=== PATIENT | male | born 1950 | race Caucasian/White ===

== ENCOUNTER 2024-09-08 15:47 | Outpatient (AMB) | payer MEDICARE, MEDICAID, SELFPAY ==
--- NOTE | 2024-09-08 15:48 | MHC.OFFWIV ---
Intake Vital Signs 09/08/24 15:50 Weight 192 lb BP 130/68 Blood Pressure Location Rt brachial Position Sitting Pulse 76 Pulse Source Pulse Oximeter Pulse Oximetry (%) 98 Oxygen Delivery Method Room Air Intake Visit Reasons: LEGAL JOB TITLES-rt ear qtips stuck Intake Note: Patient here for qtip stuck in right ear. Patient Tobacco Use Status: Never used Tobacco Allergies lisinopril Adverse Reaction (Mild, Verified 09/08/24 15:51) cough HPI HPI Comments History of Present Illness Details History of Present Illness - The patient is a 74-year-old male presenting with an impacted foreign body in the right ear canal. - Three days ago, during an ear cleaning attempt, a cotton swab tip was lodged deeply in the canal. - Initial manual removal attempts worsened the blockage, leading to ongoing ear soreness. - Self-flushing with water and baby oil proved ineffective in dislodging the swab. - Use of hydrogen peroxide to clear the blockage did not achieve results. - The patient reports ear itchiness and fullness without accompanying systemic symptoms. Physical Exam General: Cooperative, healthy appearing, comfortable, no acute distress and well developed Orientation: Patient oriented x3 Limitations: No limitations Head: Normal to inspection Ears: Right ear with foreign object (Q-tip) lodged in ear canal. Hearing grossly normal bilaterally Nose: Normal External nose present Face and sinus: Normal facial exam Eyes: Appearance normal, both eyes and all related structures Neck: Normal visual inspection and Yes full ROM Respiratory: Normal respiratory effort and able to speak in complete sentences. Skin: No rashes or lesions noted Neuro: Patient oriented x3 Extremities: Normal to inspection [facility] Social History Patient Tobacco Use Status: Never used Tobacco Review of Systems Const All systems reviewed & are unremarkable except as noted in HPI and below Physical Exam Vital Signs: Last Vital Signs Pulse 76 09/08/24 15:50 BP 130/68 09/08/24 15:50 Pulse Ox 98 09/08/24 15:50 Oxygen Delivery Method Room Air 09/08/24 15:50 Office Procedures AMB Foreign Body Removal Details: Able to remove with curved samanta clamp after initially trying with tweezers and irrigation. Foreign Body Removal, External Auditory Canal: 27943 - Foreign body removal, external auditory canal Procedure code (CPT) selection complete Assessment & Plan Assessment & Plan (1) Acute foreign body of right ear canal: Code(s): T16.1XXA - Foreign body in right ear, initial encounter Qualifiers: Encounter type: initial encounter Qualified Code(s): T16.1XXA - Foreign body in right ear, initial encounter Plan: The focused plan included further irrigation attempts to safely extract the swab tip from the right ear canal, considering previous ineffective self-attempts and the oil residual from prior interventions. Care was taken to avoid injury to the tympanic membrane, with instructions provided to monitor for complications or excessive pain. Able to remove qtip successfully. EAC has some edema and erythema, will treat for OE as could be infection seeding from FB with baby oil and other things placed in ear canal by pt. Patient was informed and verbally consented to the use of an ambient scribe for clinic note documentation during this visit. (2) Otitis externa of right ear: Code(s): H60.91 - Unspecified otitis externa, right ear Qualifiers: Otitis externa type: other infective Chronicity: acute Qualified Code(s): H60.391 - Other infective otitis externa, right ear Plan: as above Medications: New xdombhmi-oywbmnwxm-QX 3.5-10,000-1 mg/mL-unit/mL-% 4 drps otic (ear) right Q8H 7 days 10 mL 0RF Coding Level of Care Code New Pt Level 4 (74461) Diagnoses Acute foreign body of right ear canal, initial encounter T16.1XXA Encounter type: initial encounter Other infective acute otitis externa of right ear H60.391 Otitis externa type: other infective Chronicity: acute CPT Codes Details - Foreign body removal, external auditory canal: 66678 - Foreign body removal, external auditory canal ([id number])
[2024-09-08 15:50] VITALS: BP 130/68; PULSE 76; O2SAT 98
--- OUTSIDE RECORDS SUMMARY | 2024-09-08 17:34 | XMS_ITS | Clinical Summary ---
Author Organization [address] [facility] Address [address] [place] [address] Phone Care Team Providers Care Laborer Car Barn Name Role Phone Rodney Renteria MD Primary Care Provider Allergies Active Allergy Reactions Criticality Noted Date Comments Bee Venom Protein (Honey Bee) 2006 Cat Dander 12/23/2015 Dog Dander 12/23/2015 Lisinopril 10/16/2009 Cough Medications acetaminophen (TYLENOL 8 HOUR) 650 mg 8 hr tablet Take 1 tablet (650 mg total) by mouth 2 (two) times a day. 01/20/2024 Active cyclobenzaprine (FLEXERIL) 5 mg tablet Take 1 tablet (5 mg total) by mouth 3 (three) times a day if needed for muscle spasms. 11/18/2023 Active cholecalciferol (VITAMIN D-3) 25 mcg (1,000 unit) tablet Take 1 tablet (1,000 Units total) by mouth 1 (one) time each day. 07/28/2023 Active hydrocortisone (ANUSOL-HC) 2.5 % rectal cream Insert into the rectum 2 (two) times a day. 30 g 1 05/19/2024 Active nitroglycerin (NITROSTAT) 0.[address] 1 tablet (0.4 mg total) under the tongue every 5 (five) minutes if needed for chest pain. 30 tablet 1 05/19/2024 Active atorvastatin (LIPITOR) 40 mg tablet Take 1 tablet (40 mg total) by mouth at bedtime. Active hydroCHLOROthia zide (HYDRODIURIL) 25 mg tablet Take 1 tablet (25 mg total) by mouth 1 (one) time each day. 90 tablet 1 07/20/2024 Active metoprolol succinate (TOPROL-XL) 50 mg 24 hr tablet Take 1 tablet (50 mg total) by mouth 1 (one) time each day. Do not crush or chew. 90 each 1 07/20/2024 Active valsartan (DIOVAN) 80 mg tablet Take 1 tablet (80 mg total) by mouth 1 (one) time each day. 90 tablet 07/20/2024 Active clopidogreL (PLAVIX) 75 mg tablet Take 1 tablet (75 mg total) by mouth 1 (one) time each day. 90 tablet 1 07/20/2024 Active EPINEPHrine (EPIPEN) 0.3 mg/0.3 mL injection Inject 0.3 mL (0.3 mg total) into the thigh if needed for anaphylaxis. Call 911 after use. 1 each 1 07/20/2024 Active meclizine (ANTIVERT) 12.5 mg tablet Take 1 tablet (12.5 mg total) by mouth 3 (three) times a day if needed for dizziness. 30 tablet 1 07/20/2024 Active Active Problems Problem Noted Date Diagnosed Date Gastroesophageal reflux disease without esophagi tis 06/17/2023 Osteoarthritis of right hip 06/17/2023 Stenosis of right carotid artery 06/17/2023 Spondylosis of cervical frankie on without myelopathy or radiculopathy 03/26/2023 Overview (04/15/2024): Last Assessment & Plan: Mr. Cabrera has had great relief with physical therapy. He is doing home exercises and credits that and the traction with his improvement. At this point, he just has a little bit of numbness in the fifth digit of each hand. He would like a prescription for a home traction unit. We will reach out to [facility] and get that taken care of. He will follow-up with us in the future on an as-needed basis. Cerebrovascular accident (CVA) 03/20/2022 Overweight 03/20/2022 Prediabetes 03/20/2022 Chest pain 08/03/2021 Compliance Testing Analyst's nodule 01/04/2021 Stenosis of left carotid artery 10/01/2018 Overview (04/15/2024): Status post endarterectomy ? 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 angina pectoris 05/01/2011 Overview (04/15/2024): Bare-metal stent to right coronary artery, 01/29/2011 Arthritis 02/26/2010 Hyperlipidemia 02/26/2010 Primary hypertension 02/01/2009 Umbilical hernia 09/16/2008 Occlusion and stenosis of unspecified carotid ar palmer 02/21/2006 Resolved Problems Problem Noted Date Diagnosed Date Resolved Date Old cerebrovascular accident (CVA) without late effect 04/15/2024 04/15/2024 Encounters Date Type Department Care Team Description 09/08/2024 Telephone Adult Medicine [address] [phone] Rodney Renteria MD Ear Injury 07/20/2024 11:00 AM EST Office Visit Adult Medicine [address] [phone] Rodney Renteria MD Primary hypertension (Primary Dx); Prediabetes; Vertigo from Last 3 Months Immunizations Name Administration Dates Next Due H1N1 Inj Preservative Free 05/25/2009 Influenza Quadravalent, MDCK , 0.5ml, preservative free (Flucelvax) 6mo and older 03/16/2020 Influenza trivalent, 0.5mL ( Fluad) 65yo and older 03/18/2022,03/12/2021,03/31/2019,02/23,01/06/2017 Influenza trivalent, 0.5mL, preservative free (Fluarix; FluLaval; Fluzone) ages 6mo and older (Afluria) 3 years and older 03/24/2016,02/23/2015,03/22/2014,04/22,04/29/2012,05/01/2011,02/26/2010 ,02/15/2009,03/10/2008,03/26/2007,05/02 Moderna SARS-CoV-2 COVID-19, mRNA, LNP-S, preservative free 11/15/2021 Pfizer (ages 12 & older) Biv alent, COVID-19 03/18/2022 Pfizer SARS-CoV-2 COVID-19, mRNA, LNP-S, preservative free 02/28/2021 Pneumococcal conjugate 13 va lent (Prevnar 13, PCV13) 2mo and older 05/12/2018 Pneumococcal polysaccharide 23 valent (Pneumovax 23) 2yo and older 03/31/2019,03/10/2008,05/23/2007 Td Tetanus diptheria (Tdvax) 7yo and older 06/17/2023 Tdap Tetanus diptheria acell ular pertussis (Boostrix; Adacel) 7yo and older 12/01/2012 Surgical History Surgery Date Site/Laterality Comments CAROTID ENDARTERECTOMY PROCEDURE: HISTORICAL CAROTID ENDART HERNIA REPAIR PROCEDURE: REPAIR INGUINAL HERNIA HERNIA REPAIR PROCEDURE: REPAIR UMBILICAL HERNIA COLONOSCOPY 08/28/2006 PROCEDURE: HISTORICAL COLONOSCOPY; COMMENT: Small sigmoid colon polyp-tubular adenoma COLONOSCOPY 11/12/2011 PROCEDURE: HISTORICAL COLONOSCOPY; COMMENT: 5 mm sigmoid colon polyp: Tubular adenoma. COLONOSCOPY 03/13/2017 PROCEDURE: HISTORICAL COLONOSCOPY; COMMENT: 5 mm sigmoid colon polyp: tubular adenoma. OTHER SURGICAL HISTORY PROCEDURE: HISTORICAL MELANOMA; COMMENT: Malignant melanoma 07/22 right infraorbital rim (in situ) Medical History Medical History Date Comments Family history of malignant neoplasm of gastrointestinal tract 07/31/2006 DX:Family history of maligna nt neoplasm of gastrointestinal tract; COMMENT: father with diagnosis of colon cancer at age 60. Patient had a negative colonoscopy approximately age 46. Family history of colonic polyps 07/31/2006 DX:Family history of colonic polyps; COMMENT: brother with diagnosis of colonic polyps approximately age 48. Diverticulosis of colon (wit hout mention of hemorrhage) 08/28/2006 DX:Diverticulosis of colon ( without mention of hemorrhage); COMMENT: Incidental finding at colonoscopy 08/28/2006. Unspecified essential hypertension DX:Unspecified essential hypertension History of colon polyps 11/14/2011 DX:Histo ry of colon polyps History of malignant melanoma of skin 07/09/2019 DX:History of malignant melanoma of skin; COMMENT: Malignant melanoma 07/22 right infraorbital rim (in situ) Gastroesophageal reflux dise ase without esophagitis 06/17/2023 DX:Gastroesophageal reflux d isease without esophagitis Family History Medical History Relation Name Comments Other: ALS Brother Heart attack Father Ca colon Other: ALS Mother Relation Name Status Comments Brother Father Mother Social History Tobacco Use Types Packs/Day Years Used Date Smoking Tobacco: Former Smokeless Tobacco: Never Tobacco Cessation:Counseling Given: Not Answered Alcohol Use Standard Drinks/Week Comments No 0 (1 standard drink = 0.6 oz pur e alcohol) Sex and Gender Information Value Date Recorded Sex Assigned at Not on file Legal Sex Male 3:23 PM EST Gender Identity Not on file Sexual Orientation Not on file Obstetrics History Last Filed Vital Signs Vital Sign Reading Time Taken Comments Blood Pressure 138/62 07/20/2024 10:59 AM EST Pulse 60 07/20/2024 10:59 AM EST Temperature 35.8 ??C (96.4 ??F) 07/20/2024 10:[address] Respiratory Rate 16 07/20/2024 10:59 AM EST Oxygen Saturation 97% 05/19/2024 1:39 PM EST Inhaled Oxygen Concentration - - Weight 84.4 kg (186 lb) 07/20/2024 10:59 AM EST Height 174 cm (5' 8.5 ) 05/19/2024 1:39 PM EST Body Mass Index 27.87 05/19/2024 1:39 PM EST Plan of Treatment Health Maintenance Due Date Last Done Comments Zoster Vaccines (1 of 2) 1969 Falls Risk Assessment 05/11/2022 Medicare Annual Wellness Visit 05/11/2022 Social Influencers of Health Screening 05/11/2022 Depression Screening 06/17/2024 06/17/2023 Hypertension/CHF/CAD Annual BMP Blood Test 07/08/2025 07/08/2024, 06/24/2023 Colorectal Cancer Screening: Colonoscopy 04/06/2026 04/06/2021 Cholesterol Screening (Lipid Panel) 07/08/2029 07/08/2024, 06/24/2023 DTaP,Tdap,and Td Vaccines (3 - Td or Tdap) 06/17/2033 06/17/2023, 12/01/2012 Hepatitis C Screening Completed 12/01/2012 Pneumococcal Vaccine: 50+ Years Completed 03/31/2019, 05/12/2018, 03/10/2008, Additional history exists Abdominal Aortic Aneurysm (AAA) Screen Completed 01/02/2021 COVID-19 Vaccine Completed 02/14/2024, , 03/18/2022, Additional history exists Influenza Vaccine Completed 02/14/2024, , 03/18/2022, Additional history exists RSV Immunization Adult Patients Completed 02/14/2024 HIB Vaccines Aged Out No longer eligi ble based on patient's age to complete this topic HPV Vaccines Aged Out No longer eligi ble based on patient's age to complete this topic Hepatitis A Vaccines Aged Out No long er eligible based on patient's age to complete this topic Hepatitis B Vaccines Aged Out No long er eligible based on patient's age to complete this topic IPV Vaccines Aged Out No longer eligi ble based on patient's age to complete this topic MMR Vaccines Aged Out No longer eligi ble based on patient's age to complete this topic Meningococcal ACWY Vaccine Aged Out N o longer eligible based on patient's age to complete this topic Meningococcal B Vaccine Aged Out No l onger eligible based on patient's age to complete this topic RSV Immunization Patients Under 20 months Aged Out No longer eligible based on patient's age to complete this topic Varicella Vaccines Aged Out No longer eligible based on patient's age to complete this topic Procedures Procedure Name Priority Date/Time Associated Diagnosis Comments PROSTATE SPECIFIC ANTIGEN SCREEN Routine 07/08/2024 10:35 AM EST Screening for prostate cancer LIPID PANEL WITH REFLEX TO DIRECT LDL Routine 07/08/2024 10:35 AM EST Poorly-controlled hypertension Mixed hyperlipidemia Prediabetes Coronary artery disease involving tribal coronary artery of tribal heart without angina pectoris Old cerebrovascular accident (CVA) without late effect Stenosis of left carotid artery Primary osteoarthritis of right hip BASIC METABOLIC PANEL Routine 07/08/2024 10:35 AM EST Poorly-controlled hypertension Mixed hyperlipidemia Prediabetes Coronary artery disease involving tribal coronary artery of tribal heart without angina pectoris Old cerebrovascular accident (CVA) without late effect Stenosis of left carotid artery Primary osteoarthritis of right hip HEMOGLOBIN A1C Routine 07/08/2024 10:35 AM EST Poorly-controlled hypertension Mixed hyperlipidemia Prediabetes Coronary artery disease involving tribal coronary artery of tribal heart without angina pectoris Old cerebrovascular accident (CVA) without late effect Stenosis of left carotid artery Primary osteoarthritis of right hip DEPRESSION SCREENING Routine 06/17/2023 COLONOSCOPY Routine 04/06/2021 ABDOMINAL AORTIC ANEURYSM SCRREN Routine 01/02/2021 HEPATITIS C SCREENING Routine 12/01/2012 from Last 3 Months or Most Recently Relevant to Health Maintenance Results * Prostate specific antigen screen (07/08/2024 10:35 AM EST) PSA 1.98 0.00 - 4.00 ng/mL LAB CHEMISTRY METHOD 07/08/2024 12:51 PM EST [facility] Blood Venous blood specimen / Unknown Venipuncture / Unknown 07/08/2024 10:35 AM EST 07/08/2024 10:35 AM EST Narrative [facility] - 07/08/2024 12:51 PM EST The Siemens Advia Centaur Chemiluminescent Immunoassay is used. Results obtained with different assay methods or kits cannot be used interchangeably. Results cannot be interpreted as absolute evidence of the presence or absence of malignant disease. us Rodney Renteria MD LAB BLOOD ORDERABLES Final Result [facility] [address] [place] [address], * Lipid panel with reflex to direct LDL (07/08/2024 10:35 AM EST) Cholesterol 154 0 - 200 mg/dL LAB CHEMISTRY METHOD 07/08/2024 12:49 PM EST [facility] Triglycerides 130 0 - 150 mg/dL LAB CHEMISTRY METHOD 07/08/2024 12:49 PM EST [facility] HDL 50 >=40 mg/dL LAB CHEMISTRY METHOD 07/08/2024 12:49 PM EST [facility] LDL Calculated 78 0 - 100 mg/dL LAB CHEMISTRY METHOD 07/08/2024 12:49 PM EST [facility] VLDL Cholesterol Leobardo 26 mg/dL LAB CHEMISTRY METHOD 07/08/2024 12:49 PM [facility] Non HDL Chol. (LDL+VLDL) 104 <145 mg/dL LAB CHEMISTRY METHOD 07/08/2024 12:49 PM [facility] Chol/HDL Ratio 3.1 0.0 - 4.4 LAB CHEMISTRY METHOD 07/08/2024 12:49 PM [facility] Blood Venous blood specimen / Unknown Venipuncture / Unknown 07/08/2024 10:35 AM EST 07/08/2024 10:35 AM EST Rodney Renteria MD LAB BLOOD ORDERABLES Final Result Performing Organization Address City/[facility]/ZIP Co de Phone Number [facility] [address] [place] [address], [place] [phone] * Hemoglobin A1c (07/08/2024 10:35 AM EST) Hemoglobin A1C 6.2 <6.5 % LAB CHEMISTRY METHOD 07/08/2024 2:12 PM [facility] Mean Bld Glu Estim. 131 mg/dL LAB CHEMISTRY METHOD 07/08/2024 2:12 PM [facility] Blood Venous blood specimen / Unknown Venipuncture / Unknown 07/08/2024 10:35 AM EST 07/08/2024 10:35 AM EST Rodney Renteria MD LAB BLOOD ORDERABLES Final Result [facility] [address] [place] [address], [place] [phone] * (ABNORMAL) Basic metabolic panel (07/08/2024 10:35 AM EST) Sodium 138 133 - 145 mmol/L LAB CHEMISTRY METHOD 07/08/2024 12:45 PM [facility] Potassium 4.2 3.5 - 5.5 mmol/L LAB CHEMISTRY METHOD 07/08/2024 12:45 PM [facility] Chloride 101 96 - 110 mmol/L LAB CHEMISTRY METHOD 07/08/2024 12:45 PM [facility] CO2 31 21 - 32 mmol/L LAB CHEMISTRY METHOD 07/08/2024 12:45 PM [facility] Anion Gap 6 3 - 11 LAB CHEMISTRY METHOD 07/08/2024 12:45 PM [facility] Glucose 118(H) 70 - 100 mg/dL LAB CHEMISTRY METHOD 07/08/2024 12:45 PM [facility] BUN 15 5 - 25 mg/dL LAB CHEMISTRY METHOD 07/08/2024 12:45 PM [facility] Creatinine 0.93 0.70 - 1.30 mg/dL LAB CHEMISTRY METHOD 07/08/2024 12:45 PM [facility] eGFR 86 >=60 mL/min/1. 73m2 LAB CHEMISTRY METHOD 07/08/2024 12:45 PM [facility] Comment:Calculation based on the??Chronic Kidney Disease Epidemiology Collaboration (CKD-EPI) equation refit??without adjustment for race. BUN/Creatinine Ratio 16.1 LAB CHEMISTRY METHOD 07/08/2024 12:45 PM [facility] Calcium 9.7 8.5 - 10.5 mg/dL LAB CHEMISTRY METHOD 07/08/2024 12:45 PM [facility] Blood Venous blood specimen / Unknown Venipuncture / Unknown 07/08/2024 10:35 AM EST 07/08/2024 10:35 AM EST us Rodney Renteria MD LAB BLOOD ORDERABLES Final Result [facility] [address] [place] [address], [place] [phone] * Depression Screening (06/17/2023) Depression Screening abstracted Historical Provider HEALTH MAINTENANCE Final Result * Colonoscopy (04/06/2021) Colonoscopy abstracted, no interpretation Anatomical Region Laterality Modality Other Historical Provider HEALTH MAINTENANCE Final Result * Abdominal Aortic Aneurysm Screen (01/02/2021) Abdominal Aortic Aneurysm (AAA) Screening abstracted, no interpretation Anatomical Region Laterality Modality Other [facility] Provider HEALTH MAINTENANCE Final Result * Hepatitis C Screening (12/01/2012) Hepatitis C Screening abstracted [facility] Provider HEALTH MAINTENANCE Final Result from Last 3 Months or Most Recently Relevant to Health Maintenance Insurance MEDICARE MEDICAID - [place] Care Teams Laborer Car Barn Relationship Specialty Start Date End Date Rodney Renteria MD [address] [place] [address] PCP - General Internal Medicine 01/15/22
--- OUTSIDE RECORDS SUMMARY | 2024-09-08 17:34 | XMS_ITS | Encounter Summary ---
Author Organization [facility] Address [address] [place] [address] Care Team Providers Care Ordnance Artificer Helper Name Role Phone Rodney Renteria MD Primary Care Provider [phone] Reason for Visit * Reason Onset Date Comments Ear Injury 09/08/2024 Encounter Details Date Type Department Care Team ([facility] st Contact Info) Description 09/08/2024 Telephone Adult Medicine [address] [phone] Rodney Renteria MD [address] [place] [address] Ear Injury Social History Tobacco Use Types Packs/Day Years Used Date Smoking Tobacco: Former Smokeless Tobacco: Never Alcohol Use Standard Drinks/Week Comments No 0 (1 standard drink = 0.6 oz pur e alcohol) Sex and Gender Information Value Date Recorded Sex Assigned at Not on file Legal Sex Male 3:23 PM EST Gender Identity Not on file Sexual Orientation Not on file documented as of this encounter Progress Notes * Chris Oliveira RN - 09/08/2024 3:30 PM EDT Called and spoke with pt. Pt has piece of a q tip stuck in ear. Pt has tried getting it out himselfunable and causing pain to ear. Advised not to put anything in ear can push in further and rupture ear drum pt advised to go to a local to have removed. * Fannie Johnston - 09/08/2024 3:00 PM EDT Patient call requires triage: Symptoms patient is presenting: Patient lost the tip of a Q-tip in his right ear. Its been in therefor 2 day and is getting sore. Patient can't see it anymore but can feel it. How long has patient had these symptoms?: 2 days For ALL patients calling to schedule any appointment (routine, sick visit, follow up, consult, etc.) in the outpatient setting please ask the following questions: Do you have fever of higher than 101, sore throat with difficulty swallowing or severe shortness ofbreath? no If YES to any of these above symptoms, send a message to triage and do not book. Red dot. If no, an audio or video visit should be booked. Have you had close contact with someone with Coronavirus in the last 14 days? no Have you traveled abroad? no Have you traveled recently to another state outside of [place], [place], [place], [place], [place], [place], [place]? no o If yes, did you quarantine for 14 days or have a negative covid test? no If yes to any of the above, patient is not to be scheduled in office until after 14 day quarantine or negative covid test. If pain or injury related was it due to an accident at work or from a motor vehicle accident? If yes, date of accident/Injury: No If yes, gather 3rd alliance party insurance information Third Democrat Information: not applicable PCP: Rodney Renteria MD Payor: MEDICARE / Plan: MEDICARE PART A & B / Product Type: Medicare / documented in this encounter Plan of Treatment Not on file documented as of this encounter Visit Diagnoses Not on filedocumented in this encounter Care Teams Ordnance Artificer Helper Relationship Specialty Start Date End Date Rodney Renteria MD [address] [place] [address] PCP - General Internal Medicine 01/15/22 documented as of this encounter
== END 2024-09-08 17:00 | disposition home or self-care (01) ==
PROVIDERS: Visit Provider Physician Assistant
DX: T16.1XXA Foreign body in right ear, initial encounter (principal); H60.391 Other infective otitis externa, right ear

== ENCOUNTER → 2024-09-08 15:47 | Outpatient (BNVA) | payer MEDICARE, MEDICAID, SELFPAY | PROVIDERS: Visit Provider Physician Assistant | DX: T16.1XXA Foreign body in right ear, initial encounter (principal); H60.391 Other infective otitis externa, right ear | CPT/HCPCS: 69200; 99202 ==

== ENCOUNTER 2025-02-17 13:57 | Outpatient (AMB) | payer MEDICARE, MEDICAID, SELFPAY ==
[2025-02-17 14:15] VITALS: BP 126/60; PULSE 71; TEMP 36.7; O2SAT 98
--- NOTE | 2025-02-17 14:15 | MHC.OFFWIV ---
Intake Vital Signs 02/17/25 14:15 Weight 191 lb BP 126/60 Blood Pressure Location Lt brachial Position Sitting Pulse 71 Pulse Source Pulse Oximeter Temp 98.1 F Temp Source Oral Pulse Oximetry (%) 98 Oxygen Delivery Method Room Air Intake Visit Reasons: EP-lower back pain Patient Tobacco Use Status: Never used Tobacco Allergies lisinopril Adverse Reaction (Mild, Verified 02/17/25 14:18) cough HPI HPI Comments History of Present Illness Details 74 y/o Male patient who presents to the walk in clinic with c/o Chronic Lower Back pain. Reports he has OA back and Neck for years. 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 He did use Ice/Heat with no relief. Pt reports that he did take Left Over Oxycodone Pills and that took his pain away immediately - he is wondering if I can give him a new Rx for Oxy. Denies Numbness or tingling. Denies Bowel or bladder symptoms. [facility] Medical History (Updated 02/17/25 @ 15:13 by Mariel Groves NP) Osteoarthritis of lower back Social History Patient Tobacco Use Status: Never used Tobacco Review of Systems Const All systems reviewed & are unremarkable except as noted in HPI and below Physical Exam Vital Signs: Last Vital Signs Temp 98.1 F 02/17/25 14:15 Pulse 71 02/17/25 14:15 BP 126/60 02/17/25 14:15 Pulse Ox 98 02/17/25 14:15 Oxygen Delivery Method Room Air 02/17/25 14:15 Const General: no acute distress; No comfortable Nutritional Appearance: obese Orientation/consciousness: patient oriented x3 Limitations: ambulation with cane Back/Spine/Pelvis Back: back tenderness Thoracic/Lumbar Spine: pain with thoraco-lumbar ROM, thoraco-lumbar spasm and lumbar spinal tenderness Neuro General: patient oriented x3 and moves all extremities Psych Speech and movement: Normal speech and movement present Assessment & Plan Assessment & Plan (1) Osteoarthritis of lower back: Code(s): M47.9 - Spondylosis, unspecified Plan: Ordered Flexeril 10 mg at Bedtime. Ordered Acetaminophen for pain relief. Ordered Lido Patches for back pain. Recommended PT - Patient declined. Advised ED if Pain worse. Medications: New cyclobenzaprine 10 mg PO BEDTIME 20 tabs 0RF M47.9 - Spondylosis, unspecified acetaminophen 1,000 mg (2 x 500 mg) PO Q6H PRN 30 caps 0RF pain M47.9 - Spondylosis, unspecified lidocaine 5% Leave on most painful area for up to 12 hrs 1 patch topical DAILY 30 ea 0RF M47.9 - Spondylosis, unspecified Coding Level of Care Code Est Pt Level 4 (37268) Diagnoses Osteoarthritis of lower back M47.9 Time Spent (min) 20
--- OUTSIDE RECORDS SUMMARY | 2025-02-17 15:58 | XMS_ITS | Clinical Summary ---
Author Organization [address] [facility] Address [address] [place] [address] Phone Care Team Providers Care Radial Router Operator Name Role Phone Rodney Renteria MD Primary Care Provider Allergies Active Allergy Reactions Criticality Noted Date Comments Bee Venom Protein (Honey Bee) 2006 Cat Dander 12/23/2015 Dog Dander 12/23/2015 Lisinopril 10/16/2009 Cough Medications acetaminophen (TYLENOL 8 HOUR) 650 mg 8 hr tablet Take 1 tablet (650 mg total) by mouth 2 (two) times a day. 4 Active cyclobenzaprin e (FLEXERIL) 5 mg tablet Take 1 tablet (5 mg total) by mouth 3 (three) times a day if needed for muscle spasms. 4 Active cholecalcifero l (VITAMIN D-3) 25 mcg (1,000 unit) tablet Take 1 tablet (1,000 Units total) by mouth 1 (one) time each day. 4 Active hydrocortisone (ANUSOL-HC) 2.5 % rectal cream Insert into the rectum 2 (two) times a day. 30 g 1 4 Active atorvastatin (LIPITOR) 40 mg tablet Take 1 tablet (40 mg total) by mouth at bedtime. Active clopidogreL (PLAVIX) 75 mg tablet Take 1 tablet (75 mg total) by mouth 1 (one) time each day. 90 tablet 1 5 Active EPINEPHrine (EPIPEN) 0.3 mg/0.3 mL injection Inject 0.3 mL (0.3 mg total) into the thigh if needed for anaphylaxis . Call 911 after use. 1 each 1 5 Active meclizine (ANTIVERT) 12.5 mg tablet Take 1 tablet (12.5 mg total) by mouth 3 (three) times a day if needed for dizziness. 30 tablet 1 5 Active nitroglycerin (NITROSTAT) 0.[address] 1 TABLET UNDER THE TONGUE EVERY 5 MINUTES IF NEEDED FOR CHEST PAIN. 25 tablet 5 Active hydroCHLOROthi azide (HYDRODIURIL) 25 mg tablet TAKE 1 TABLET BY MOUTH 1 TIME EACH DAY. 30 tablet 5 Active valsartan (DIOVAN) 80 mg tablet TAKE 1 TABLET BY MOUTH EVERY DAY 30 tablet 5 Active metoprolol succinate (TOPROL-XL) 50 mg 24 hr tablet TAKE 1 TABLET BY MOUTH 1 TIME EACH DAY. DO NOT CRUSH OR CHEW. 90 tablet 5 Active hydroCHLOROthi azide (HYDRODIURIL) 25 mg tablet Take 1 tablet (25 mg total) by mouth 1 (one) time each day. 90 tablet 1 5 01/22/20 25 Discontinued metoprolol succinate (TOPROL-XL) 50 mg 24 hr tablet Take 1 tablet (50 mg total) by mouth 1 (one) time each day. Do not crush or chew. 90 each 1 5 02/09/20 25 Discontinued valsartan (DIOVAN) 80 mg tablet TAKE 1 TABLET BY MOUTH 1 TIME EACH DAY. 90 tablet 5 01/22/20 25 Discontinued Active Problems Problem Noted Date Diagnosed Date [...] traction unit. We will reach out to [facility] and get that taken care of. He will follow-up with us in the future on an as-needed basis. Cerebrovascular accident (CVA) ([facility] V24, [facility] V28) 03/20/2022 Overweight 03/20/2022 Prediabetes 03/20/2022 Chest pain 08/03/2021 Foreign Exchange Student Coordinator's nodule 01/04/2021 Stenosis of left carotid artery 10/01/2018 Overview (04/15/2024): Status post endarterectomy ? 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 angina pectoris 05/01/2011 Overview (04/15/2024): Bare-metal stent to right coronary artery, 01/29/2011 Arthritis 02/26/2010 Hyperlipidemia 02/26/2010 Primary hypertension 02/01/2009 Umbilical hernia 09/16/2008 Occlusion and stenosis of unspecified carotid ar palmer 02/21/2006 Resolved Problems Problem Noted Date Diagnosed Date Resolved Date Old cerebrovascular accident (CVA) without late effect 04/15/2024 04/15/2024 Encounters Date Type Department Care Team Description 01/28/2025 Telephone Adult Medicine [address] [address] Rodney Renteria MD from Last 3 Months Immunizations Name Administration [...] malignant melanoma of skin; COMMENT: 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) Gastroesophageal reflux [...] 60 07/20/2024 10:59 AM EST Temperature 35.8 C (96.4 F) 07/20/2024 10:59 AM EST Respiratory Rate 16 07/20/2024 10:59 AM EST Oxygen Saturation 97% 05/19/2024 1:39 PM EST Inhaled Oxygen Concentration - - Weight 84.4 kg (186 lb) 07/20/2024 10:59 AM EST Height 174 cm (5' 8.5 ) 05/19/2024 1:39 PM EST Body Mass Index 27.87 05/19/2024 1:39 PM EST Plan of Treatment Health Maintenance Due Date Last Done Comments Zoster Vaccines (1 of 2) 1999 Falls Risk Assessment 05/11/2022 Medicare Annual Wellness Visit 05/11/2022 Social Influencers of Health Screening 05/11/2022 Depression Screening 06/02/2024 06/17/2023 COVID-19 Vaccine ( season) 2025 02/14/2024, 02/22/2023, 03/18/2022, Additional history exists Influenza Vaccine (#1) 2025 , 02/22/2023, 03/18/2022, Additional history exists Hypertension/CHF/CAD Annual BMP Blood Test 07/08/2025 07/08/2024, 06/24/2023 Colorectal Cancer Screening: Colonoscopy 04/06/2026 04/06/2021 Cholesterol Screening (Lipid Panel) 07/08/2029 07/08/2024, 06/24/2023 DTaP,Tdap,and Td Vaccines (3 - Td or Tdap) 06/17/2033 06/17/2023, 12/01/2012 Hepatitis C Screening Completed 12/01/2012 Pneumococcal Vaccine: 50+ Years Completed 03/31/2019, 05/12/2018, 03/10/2008, Additional history exists Abdominal Aortic Aneurysm (AAA) Screen Completed 01/02/2021 RSV Immunization Adult Patients Completed 02/14/2024 HIB [...] Procedure Name Priority Date/Time Associated Diagnosis Comments BASIC METABOLIC PANEL Routine 07/08/2024 10:35 AM EST Poorly-controlled hypertension Mixed hyperlipidemia Prediabetes Coronary artery disease involving pokagon coronary artery of pokagon heart without angina pectoris Old cerebrovascular accident (CVA) without late effect Stenosis of left carotid artery Primary osteoarthritis of right hip LIPID PANEL WITH REFLEX TO DIRECT LDL Routine 07/08/2024 10:35 AM EST Poorly-controlled hypertension Mixed hyperlipidemia Prediabetes Coronary artery disease involving pokagon coronary artery of pokagon heart without angina pectoris Old cerebrovascular accident (CVA) without late effect Stenosis of left carotid artery Primary osteoarthritis of right hip DEPRESSION SCREENING Routine 06/17/2023 COLONOSCOPY Routine 04/06/2021 ABDOMINAL AORTIC ANEURYSM SCRREN Routine 01/02/2021 HEPATITIS C SCREENING Routine 12/01/2012 from Last 3 Months or Most Recently Relevant to Health Maintenance Results * Lipid panel with reflex to direct LDL (07/08/2024 10:35 AM EST) Cholesterol 154 0 - 200 mg/dL LAB CHEMISTRY METHOD 07/08/2024 12:49 PM EST [facility] Triglycerides 130 0 - 150 mg/dL LAB CHEMISTRY METHOD 07/08/2024 12:49 PM EST [facility] HDL 50 >=40 mg/dL LAB CHEMISTRY METHOD 07/08/2024 12:49 PM [facility] LDL Calculated 78 0 - 100 mg/dL LAB CHEMISTRY METHOD 07/08/2024 12:49 PM [facility] VLDL Cholesterol Leobardo 26 mg/dL LAB CHEMISTRY METHOD 07/08/2024 12:49 PM [facility] Non HDL Chol. (LDL+VLDL) 104 <145 mg/dL LAB CHEMISTRY METHOD 07/08/2024 12:49 PM [facility] Chol/HDL Ratio 3.1 0.0 - 4.4 LAB CHEMISTRY METHOD 07/08/2024 12:49 PM [facility] Blood Venous blood specimen / Unknown Venipuncture / Unknown 07/08/2024 10:35 AM EST 07/08/2024 10:35 AM EST us Rodney Renteria MD LAB BLOOD ORDERABLES Final Result [facility] [address] [place] [address], [place] [phone] * (ABNORMAL) Basic metabolic panel (07/08/2024 10:35 AM EST) Sodium 138 133 - 145 mmol/L LAB CHEMISTRY METHOD 07/08/2024 12:45 PM [facility] Potassium 4.2 3.5 - 5.5 mmol/L LAB CHEMISTRY METHOD 07/08/2024 12:45 PM [facility] Chloride 101 96 - 110 mmol/L LAB CHEMISTRY METHOD 07/08/2024 12:45 PM [facility] CO2 31 21 - 32 mmol/L LAB CHEMISTRY METHOD 07/08/2024 12:45 PM [facility] Anion Gap 6 3 - 11 LAB CHEMISTRY METHOD 07/08/2024 12:45 PM [facility] Glucose 118(H) 70 - 100 mg/dL LAB CHEMISTRY METHOD 07/08/2024 12:45 PM [facility] BUN 15 5 - 25 mg/dL LAB CHEMISTRY METHOD 07/08/2024 12:45 PM [facility] Creatinine 0.93 0.70 - 1.30 mg/dL LAB CHEMISTRY METHOD 07/08/2024 12:45 PM [facility] eGFR 86 >=60 mL/min/1. 73m2 LAB CHEMISTRY METHOD 07/08/2024 12:45 PM [facility] Comment:Calculation based on the Chronic Kidney Disease Epidemiology Collaboration (CKD-EPI) equation refit without adjustment for race. BUN/Creatinine Ratio 16.1 LAB CHEMISTRY METHOD 07/08/2024 12:45 PM [facility] Calcium 9.7 8.5 - 10.5 mg/dL LAB CHEMISTRY METHOD 07/08/2024 12:45 PM [facility] Blood Venous blood specimen / Unknown Venipuncture / Unknown 07/08/2024 10:35 AM EST 07/08/2024 10:35 AM EST us Rodney Renteria MD LAB BLOOD ORDERABLES Final Result [facility] [address] [place] [address], [place] [phone] * Depression Screening (06/17/2023) Depression Screening abstracted Historical Provider HEALTH MAINTENANCE Final Result * Colonoscopy (04/06/2021) Colonoscopy abstracted, no interpretation Anatomical Region Laterality Modality Other Historical Provider HEALTH MAINTENANCE Final Result * Abdominal Aortic Aneurysm Screen (01/02/2021) Abdominal Aortic Aneurysm (AAA) Screening abstracted, no interpretation Anatomical Region Laterality Modality Other Historical Provider HEALTH MAINTENANCE Final Result * Hepatitis C Screening (12/01/2012) Hepatitis C Screening abstracted Historical Provider HEALTH MAINTENANCE Final Result from Last 3 Months or Most Recently Relevant to Health Maintenance Insurance MEDICARE MEDICAID - [place] Care Teams Radial Router Operator Relationship Specialty Start Date End Date Rodney Renteria MD [address] [place] [address] PCP - General Internal Medicine 01/15/22
--- OUTSIDE RECORDS SUMMARY | 2025-02-17 15:58 | XMS_ITS ---
Author Name [facility] Organization Unknown Care Team Organization Name Specialty Phone Email Start Date End Da te [facility] 01/19/2025 [facility] Christine Zepeda Primary Care 05/14/2023 4 [facility] [address] Primary Care [email or web address] 11/08/2022 4 [facility] ANKIT Dai Primary Care 08/07/2022 4 [facility] Hannah Medina Primary Care 04/09/2022 4
--- OUTSIDE RECORDS SUMMARY | 2025-02-17 15:58 | XMS_ITS | Encounter Summary ---
Author Organization [facility] Address [address] [place] [address] Care Team Providers Care Project Construction Manager Name Role Phone Rodney Renteria MD Primary Care Provider [phone] Reason for Visit * Reason Onset Date Comments Vomiting 01/28/2025 Bloated 01/28/2025 Vertigo 01/28/2025 Encounter Details Date Type Department Care Team ([facility] Contact Info) Description 01/28/2025 Telephone Adult Medicine [facility] [address] [place] [address] Rodney Renteria MD [address] [place], [place] Social History Tobacco Use Types Packs/Day Years [...] as of this encounter Progress Notes * Clary Springer RN - 01/28/2025 12:45 PM EDT Pt has hx of a hernia surgery 12 years ago ( umbilical and ventral ) for the past few weeks startedwith feeling bloated and gassy, then developed nausea and poor appetite, ( no vomiting) stool has changed and looks like little shrimp , no black or bloody stools, has abd discomfort very bloated and the gas distention makes him uncomfortable , chest discomfort due to feeling full he is drinking coke so he can burp, feels somewhat better after burping but gas builds back up, he is dizzy in the morning when he gets up and has to hold on to the wall so he does not fall. Symptoms are getting worse over past few days Pt is advised to go to the ed , he is refusing , states he just wants to be seen in office, no visits available today and it is n not appropriate to wait 4 days until we are back in the office . Pt agreed to go to an C but I did explain they will advise him to go to the ed as they cannot do the imagine needed Pt ended the call disappointed I refused to make an appointment next week * Amanda Morrell - 01/28/2025 12:29 PM EDT Patient call requires triage: Symptoms patient is presenting: patient states he is having the same symptoms as when he had hernia's a few years back. Vomiting, bloating, gas, smaller stools, some diarrhea. No abdominal pain but has gas, burping also vertigo. Drinking coke to settle his stomach. Patient is asking for an appointment. How long has patient had these symptoms?: several weeks For ALL patients calling to schedule any [...] traveled recently to another state outside of [place], [place], [place], [place], [place], [place], [place]? no o If yes, did you quarantine [...] of accident/Injury: No If yes, gather 3rd democrat insurance information [employer] Party Information: not applicable PCP: Rodney Renteria MD Payor: MEDICARE / Plan: MEDICARE PART A & B / Product Type: Medicare / documented in this encounter Plan of Treatment Not on file documented as of this encounter Visit Diagnoses Not on filedocumented in this encounter Care Teams Project Construction Manager Relationship Specialty Start Date End Date Rodney Renteria MD [address] [place] [address] PCP - General Internal Medicine 01/15/22 documented as of this encounter
== END 2025-02-17 14:40 | disposition home or self-care (01) ==
PROVIDERS: Visit Provider Nurse Practitioner Family
DX: M47.9 Spondylosis, unspecified (principal)

== ENCOUNTER → 2025-02-17 13:57 | Outpatient (BNVA) | payer MEDICARE, MEDICAID, SELFPAY | PROVIDERS: Visit Provider Nurse Practitioner Family | DX: M19.09 Primary osteoarthritis, other specified site (principal) | CPT/HCPCS: 99212 ==

== ENCOUNTER 2025-05-20 09:22 | Outpatient (AMB) | payer MEDICARE, MEDICAID, SELFPAY ==
--- OUTSIDE RECORDS SUMMARY | 2025-05-17 10:00 | XMS_ITS | Encounter Summary ---
Author Organization [facility] Address [address] [place] [address] Care Team Providers Care Guide Excursion Name Role Phone Rodney Renteria MD Primary Care Provider [phone] Reason for Referral * Orthopedic (Routine) - Authorized Specialty Diagnoses / Procedures Referred By Contac t Referred To Contact Orthopedic Surgery / Orthopaedic Surgery Diagnoses Right hip pain Procedures L Inj/Asp: R hip joint Beba Keith MD [address] [facility] [address] [place] [address] Phone: tel: fax: Referral ID Status Reason Start Date Expiration Date V isits Requested Visits Authorized [id number] Authorized 05/17/2025 05/17/2026 1 1 * Imaging (Routine) - Authorized Specialty Diagnoses / Procedures Referred By Contac t Referred To Contact Radiology Diagnoses Right hip pain Procedures US Arthrocentesis Asp Inj Joint Major Right Beba Keith MD 175 [facility] [address] [place] [address] Phone: tel: fax: Referral ID Status Reason Start Date Expiration Date V isits Requested Visits Authorized [id number] Authorized 05/17/2025 05/17/2026 1 1 Reason for Visit * Reason Comments Follow-up Right hip pain Encounter Details Date Type Department Care Team ([facility] st Contact Info) Description 05/17/2025 10:00 AM EST Office Visit Orthopedic Surgery - [place] [address] [place] [phone] Beba Keith MD 175 [facility] [address] [place] [address] Right hip pain (Primary Dx) Social History Tobacco Use Types Packs/Day Years [...] on file documented as of this encounter Last Filed Vital Signs Vital Sign Reading Time Taken Comments Blood Pressure - - Pulse - - Temperature - - Respiratory Rate - - Oxygen Saturation - - Inhaled Oxygen Concentration - - Weight 84.8 kg (187 lb) 05/17/2025 9:59 AM EST Height 174 cm (5' 8.5 ) 05/17/2025 9:59 AM EST Body Mass Index 28.02 05/17/2025 9:59 AM EST documented in this encounter Progress Notes * Beba Keith MD - 05/17/2025 10:00 AM ESTAssociated Order(s): L Inj/Asp: R hip joint Post-Procedure Diagnose(s): Right hip pain Patient:Jose Cabrera : 1950 VISIT DATE: 05/17/2025 Attestation Chief Complaint: Chief Complaint Patient presents with Follow-up Right hip pain HPI: History of Present Illness Jose Cabrerais a 75-year-old male who presents for right hip pain. He reports that his previous injection last May provided significant relief, enabling him to increase his physical activity, including exercises with resistance bands to strengthen his legs. However, he experiences pain in the groin , particularly when lifting his leg while lying down and thenputting it down. He does not report any numbness or tingling sensations extending down his leg. Theonset of the current pain was approximately 6 months ago, coinciding with an increase in his activity level during the summer. He has discontinued golfing due to the exacerbation of his symptoms whentransferring weight onto the affected leg. He manages the pain with muscle relaxers and other medications as needed. ROS: Constitutional: no fever Eyes: negative for redness, drainage ENT: negative for ear pain or discharge Cardiovascular: negative for pain Respiratory: no cough GI: no vomiting or diarrhea, stomach ache, change in BMs : normal voiding Musculoskeletal: see HPI Skin: no rash Neurologic: negative for headache, dizziness The remainder of the systems is noncontributory PMH: Patient Active Problem List Diagnosis Date Noted Gastroesophageal reflux disease without esophagitis 06/17/2023 Osteoarthritis of right hip 06/17/2023 Stenosis of right carotid artery 06/17/2023 Spondylosis of cervical region without myelopathy or radiculopathy 03/26/2023 Cerebrovascular accident (CVA) ([facility] V24, 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 Smoking Status Former BSA 2 m?? Gen: No acute distress. Pleasant Eyes: PERRL, EOMI ENT: Mucous membranes moist Resp:Normal respiratory effort Lymphatics: No noted lymphadenopathy Physical Exam Musculoskeletal -Hip: Right Inspection: no ecchymosis, asymmetry, atrophy. Gait: non-antalgic. Standing: nl. Palpation: Inguinal crease: nl, ASIS: nl, AIIS: nl, , Greater troch: nl, Iliac crest: nl, gluteals/ERs:Nl, piriformis:Nl, ROM: 0-90. ER /IR guarded and decreased Strength:5/5 Hip flex @ 80 deg.: nl, @100 deg: nl, Abduct: nl, Adduct: nl, Ext: nl. Special tests: PARUL: guarded , FADIR: guarded Radiographic/Imaging: AP view of the pelvis and AP and frog-leg view of the right hip were obtainedand reviewed There is mild spurring about the right hip. No acute fracture or acute bony abnormalities noted. Mild sclerosis of the left SI joint. All images are stored and permanently retrievable Assessment: 1. Right hip pain Assessment & Plan 1. Right hip pain. - The pain in the right hip has returned approximately 6 months after the last injection, which wasadministered about a year ago. - The pain is localized in the groin and front of the hip, especially when lifting and lowering theleg. - There is no numbness or tingling down the leg. - An updated x-ray of the right hip will be obtained to ensure there have been no significant changes since the last x-ray, which was over a year ago. Reviewed risks and benefits of ultrasound-guided intra-articular hip injection and he agrees and wishes to proceed. L Inj/Asp: R hip joint Indications: pain Details: 22 G needle, ultrasound-guided anterior approach Medications: 4 mL lidocaine 1 %; 40 mg triamcinolone acetonide 40 mg/mL Outcome: tolerated well, no immediate complications Informed Consent: Laterality: Right Relevant images/test results available and reviewed: yes Health status cleared: Yes Procedure/treatment, purpose, treatment alternatives, risks/potential complications and benefits explained: yes Risk/complications/benefits details: Risks include bleeding, infection, increase in pain Patient questions answered: yes Patient agrees, verbalizes understanding, and wants to proceed: yes Consent given by: Patient Informed consent discussion completed by Physician/ZANE with patient: Verbal Pre-procedure timeout performed: yes Plan: 1) Advised to take it easy for the next 24 to 48 hours. 2) May ice and use Tylenol or NSAIDs for postinjection soreness 3) Advised to call the office for any severe increase in pain, redness, swelling or bruising. 4) follow-up as needed Significant amount of additional work done and reevaluation of this patient including reviewing medical records obtaining and reviewing updated x-rays, discussing diagnosis and treatment options and electing to perform ultrasound- guided intra-articular hip injection. All of the patient's questions were answered. The patient understand and feels comfortable with thecurrent care plan. Thanks for allowing me to be a part of the patient's care team! Please feel free to contact me for any reason. Sincerely, Beba Keith MD. ON 05/17/2025 at 10:35 AM EST [1] Past Surgical History: Procedure Laterality Date CAROTID ENDARTERECTOMY PROCEDURE: HISTORICAL CAROTID ENDART COLONOSCOPY 08/28/2006 PROCEDURE: HISTORICAL COLONOSCOPY; COMMENT: Small sigmoid colon polyp-tubular adenoma COLONOSCOPY 11/12/2011 PROCEDURE: HISTORICAL COLONOSCOPY; COMMENT: 5 mm sigmoid colon polyp: Tubular adenoma. COLONOSCOPY 03/13/2017 PROCEDURE: HISTORICAL COLONOSCOPY; COMMENT: 5 mm sigmoid colon polyp: tubular adenoma. HERNIA REPAIR PROCEDURE: REPAIR INGUINAL HERNIA HERNIA REPAIR PROCEDURE: REPAIR UMBILICAL HERNIA OTHER SURGICAL HISTORY PROCEDURE: HISTORICAL MELANOMA; COMMENT: Malignant melanoma 07/22 right infraorbital rim (in situ) [2] Current Outpatient Medications: acetaminophen (TYLENOL 8 HOUR) 650 mg 8 hr tablet, Take 1 tablet (650 mg total) by mouth 2 (two) times a day., Disp: , Rfl: atorvastatin (LIPITOR) 40 mg tablet, Take 1 tablet (40 mg total) by mouth at bedtime., Disp: , Rfl: cholecalciferol (VITAMIN D-3) 25 mcg (1,000 unit) tablet, Take 1 tablet (1,000 Units total) by mouth 1 (one) time each day., Disp: , Rfl: clopidogreL (PLAVIX) 75 mg tablet, Take 1 tablet (75 mg total) by mouth 1 (one) time each day., Disp: 90 tablet, Rfl: 1 EPINEPHrine (EPIPEN) 0.3 mg/0.3 mL injection, Inject 0.3 mL (0.3 mg total) into the thigh if neededfor anaphylaxis. Call 911 after use., Disp: 1 each, Rfl: 1 hydroCHLOROthiazide (HYDRODIURIL) 25 mg tablet, TAKE 1 TABLET BY MOUTH EVERY DAY, Disp: 90 tablet, Rfl: 1 hydrocortisone (ANUSOL-HC) 2.5 % rectal cream, INSERT INTO THE RECTUM 2 TIMES A DAY., Disp: 30 g, Rfl: 1 lidocaine (LIDODERM) 5 % patch, APPLY 1 PATCH TOPICALLY DAILY LEAVE ON MOST PAINFUL AREA FOR UP TO 12 HRS, Disp: , Rfl: meclizine (ANTIVERT) 12.5 mg tablet, Take 1 tablet (12.5 mg total) by mouth 3 (three) times a day if needed for dizziness., Disp: 30 tablet, Rfl: 1 metoprolol succinate (TOPROL-XL) 50 mg 24 hr tablet, TAKE 1 TABLET BY MOUTH 1 TIME EACH DAY. DO NOTCRUSH OR CHEW., Disp: 90 tablet, Rfl: 0 nitroglycerin (NITROSTAT) 0.4 mg SL tablet, PLACE 1 TABLET UNDER TONGUE EVERY 5 MINS, UP TO 3 DOSESAS NEEDED FOR CHEST PAIN, Disp: 75 tablet, Rfl: 1 oxyCODONE (ROXICODONE) 5 mg immediate release tablet, Take 1 tablet (5 mg total) by mouth 2 (two) times a day if needed for severe pain. Max Daily Amount: 10 mg, Disp: 14 tablet, Rfl: 0 valsartan (DIOVAN) 80 mg tablet, TAKE 1 TABLET BY MOUTH EVERY DAY, Disp: 90 tablet, Rfl: 1 cyclobenzaprine (FLEXERIL) 5 mg tablet, Take 1 tablet (5 mg total) by mouth at bedtime as needed for muscle spasms. (Patient not taking: Reported on 05/17/2025), Disp: 30 tablet, Rfl: 2 [3] Allergies Allergen Reactions Bee Venom Protein (Honey Bee) Cat Dander Dog Dander Lisinopril Cough [4] Family History Problem Relation Name Age of Onset Other (Other: ALS) Mother Heart attack Father 56 Ca colon Other (Other: ALS) Brother documented in this encounter Plan of Treatment Upcoming Encounters Date Type Department Care Team (Late st Contact Info) Description 07/20/2025 9:10 AM EST Office Visit [facility] [address] [place] [phone] Jenni Horne NP [address] [place] [address] [address] [place] [phone] 07/27/2025 11:30 AM EST Office Visit [facility] Medicine [address] [phone] Rodney Renteria MD [address] [place] [address] [place] [phone] documented as of this encounter Procedures Procedure Name Priority Date/Time Associated Diagnosis Comments US ARTHROCENTESIS ASP INJ JOINT MAJOR RIGHT Routine 05/17/2025 10:48 AM EST Right hip pain IA ARTHROCENTESIS/ASPIRATI ON/INJECTION MAJOR JOINT/BURSA W U/S GUIDANCE Routine 05/17/2025 10:00 AM EST Right hip pain documented in this encounter Results * US Arthrocentesis Asp Inj Joint Major Right (05/17/2025 10:48 AM EST) Anatomical Region Laterality Modality Extremity Right Ultrasound Narrative 05/17/2025 5:36 PM EST PROCEDURE: Right hip Injection Note. The risks of the injection were discussed including: infection, neurovascular injury, steroid flare, fat atrophy, inflammatory response. The patient understood the risks and gave verbal consent. The patient was positioned supine with the anterior hip exposed. The area was prepped in a sterile fashion with Chloro-Prep. Vascular structures were identified using ultrasound power Doppler. Lidocaine 4ml was injected locally then slowly advanced using a 22g 3.5 spinal needle infiltrating to the femoral head-neck junction under ultrasound guidance. A small amount of anesthetic was injected into the capsule. Kenalog 40 mg and lidocaine 3 cc was injected into the hip joint without difficulty. The hip capsule was observed filling with the injection. Images were recorded and will permanently stored in patients medical record. The patient tolerated the procedure well. There were no complications. Aftercare was thoroughly discussed. Images were taken and are permanently stored and retrievable. us Beba Keith MD IMG US PROCEDURES Final Result * XR Hip 2-3 Views Right (05/17/2025 10:45 AM EST) Anatomical Region Laterality Modality Lower Extremities, Hip Right Computed Radiography 05/17/2025 4:31 PM EST Impressions 05/17/2025 4:33 PM EST Mild osteoarthritis of the right hip. Possible calcific trochanteric bursitis of the left hip. Lumbar spondylosis. -------- FINAL REPORT -------- Dictated By: Sonja Isaacs Dictated Date: 05/17/2025 16:31 ET Assigned Physician: Sonja Isaacs Reviewed and Electronically Signed By: Sonja Isaacs Signed Date: 05/17/2025 16:33 ET Workstation ID: [id number] Transcribed By: Self Edit Transcribed Date: 05/17/2025 16:31 ET Narrative 05/17/2025 4:33 PM EST PELVIS, SINGLE FRONTAL VIEW RIGHT HIP, FRONTAL & FROG LEG LATERAL VIEWS HISTORY: Hip joint pain. PRIORS: None. FINDINGS: There is mild spurring about the right hip. There is a tiny faint linear soft tissue calcific location lateral to the left greater trochanter. No acute fracture, malalignment, or soft tissue abnormality is seen. There is faint sclerosis of the upper left SI joint. There is degenerative change of the visualized lower lumbar spine. There is advanced atherosclerosis. Procedure Note Sonja Isaacs MD - 05/17/2025 PELVIS, SINGLE FRONTAL VIEW RIGHT HIP, FRONTAL & FROG LEG LATERAL VIEWS HISTORY: Hip joint pain. PRIORS: None. FINDINGS: There is mild spurring about the right hip. There is a tiny faint linear soft tissue calcific location lateral to theleft greater trochanter. No acute fracture, malalignment, or soft tissue abnormality is seen. There is faint sclerosis of the upper left SI joint. There is degenerative change of the visualized lower lumbar spine. There is advanced atherosclerosis. IMPRESSION: Mild osteoarthritis of the right hip. Possible calcific trochantericbursitis of the left hip. Lumbar spondylosis. -------- FINAL REPORT -------- Dictated By: Sonja Isaacs Dictated Date: 05/17/2025 16:31 ET Assigned Physician: Sonja Isaacs Reviewed and Electronically Signed By: Sonja Isaacs Signed Date: 05/17/2025 16:33 ET Workstation ID: [id number] Transcribed By: Self Edit Transcribed Date: 05/17/2025 16:31 ET us Beba Keith MD IMG XR PROCEDURES Final Result * IA ARTHROCENTESIS/ASPIRATION/INJECTION MAJOR JOINT/BURSA W U/S GUIDANCE (05/17/2025 10:00 AM EST) Narrative Beba Keith MD - 05/17/2025 10:00 AM EST Beba Keith MD 05/17/2025 5:37 PM L Inj/Asp: R hip joint Indications: pain Details: 22 G needle, ultrasound-guided anterior approach Medications: 4 mL lidocaine 1 %; 40 mg triamcinolone acetonide 40 mg/mL Outcome: tolerated well, no immediate complications Informed Consent: Laterality: Right Relevant images/test results available and reviewed: yes Health status cleared: Yes Procedure/treatment, purpose, treatment alternatives, risks/potential complications and benefits explained: yes Risk/complications/benefits details: Risks include bleeding, infection, increase in pain Patient questions answered: yes Patient agrees, verbalizes understanding, and wants to proceed: yes Consent given by: Patient Informed consent discussion completed by Physician/ZANE with patient: Verbal Pre-procedure timeout performed: yes us Beba Keith MD IN CLINIC/BEDSIDE ORDERABLES F inal Result documented in this encounter Visit Diagnoses Diagnosis Right hip pain- Primary Pain in joint, pelvic region and thigh documented in this encounter Administered Medications Inactive Administered Medications - up to 3 most recent administrations Medication Order MAR Action Action Date Dose Rate Site lidocaine (XYLOCAINE) 1 % injection 4 mL 4 mL, Once PRN Procedure, Starting on Fri05/17/25 at 1000, For 1 doseIndications:Right hip pain Given 05/17/2025 10:00 AM EST 4 mL triamcinolone acetonide (KENALOG-40) 40 mg/mL injection 40 mg 40 mg, Once PRN Procedure, Starting on Fri05/17/25 at 1000, For 1 doseIndications:Right hip pain Given 05/17/2025 10:00 AM EST 40 mg documented in this encounter Historical Medications * This list may reflect changes made after this encounter. lidocaine (LIDODERM) 5 % patch APPLY 1 PATCH TOPICALLY DAILY LEAVE ON MOST PAINFUL AREA FOR UP TO 12 HRS 04/15/2025 added in this encounter Care Teams Guide Excursion Relationship Specialty Start Date End Date Rodney Renteria MD [address] [place] [address] PCP - General Internal Medicine 01/15/22 documented as of this encounter
--- OUTSIDE RECORDS SUMMARY | 2025-05-17 10:50 | XMS_ITS | Encounter Summary ---
Author Organization [facility] Address [address] [place] [address] Care Team Providers Care Lumber Puller Name Role Phone Rodney Renteria MD Primary Care Provider [phone] Reason for Visit * Imaging (Routine) - Authorized Specialty Diagnoses / Procedures Referred By Froilan avery Referred To Contact Radiology Diagnoses Right hip pain Procedures US Arthrocentesis Asp Inj Joint Major Right Beba Keith MD 175 [facility] [address] [place] [address] Phone: tel: fax: Referral ID Status Reason Start Date Expiration Date V isits Requested Visits Authorized [id number] Authorized 05/17/2025 05/17/2026 1 1 Encounter Details Date Type Department Care Team (Late st Contact Info) Description 05/17/2025 10:50 AM EST Ancillary Procedure Orthopedic Surgery - [place] [address] [place] [phone] Arrived Social History Tobacco Use Types Packs/Day Years [...] on file documented as of this encounter Plan of Treatment Upcoming Encounters Date Type Department Care Team (Late st Contact Info) Description 07/20/2025 9:10 AM EST Office Visit [facility] [address] [place] [phone] Jenni Horne NP [address] [place] [address] Dr [address] [place] [address] 07/27/2025 11:30 AM EST Office Visit [address] [phone] Rodney Renteria MD [address] [place] [address] documented as of this encounter Procedures Procedure Name Priority Date/Time Associated Diagnosis Comments US ARTHROCENTESIS ASP INJ JOINT MAJOR RIGHT Routine 05/17/2025 10:48 AM EST Right hip pain documented in [...] taken and are permanently stored and retrievable. Beba Keith MD IMG US PROCEDURES Final Result documented in this encounter Visit Diagnoses Not on filedocumented in this encounter Care Teams Lumber Puller Relationship Specialty Start Date End Date Rodney Renteria MD [address] [place] [address] PCP - General Internal Medicine 01/15/22 documented as of this encounter
--- NOTE | 2025-05-20 09:27 | MHC.OFFVIS ---
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 He reports a 10-year history of chronic back pain, which recently exacerbated while playing golf and bending for a prolonged period to fix his truck. The pain is primarily on the left side, non-radiating, and is described as a constant, spasming, shooting, and aching sensation that affects his walking, bending, climbing stairs, and lifting. He denies any tingling or numbness in the lower extremities. 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 Past interventions include a course of prednisone, Flexeril, Tylenol, and a script for oxycodone, which was most helpful for spasms. He received a right hip injection three days prior to this visit. He completed physical therapy a year ago and now performs exercises at home with bands and uses a home traction unit for his neck. He is unable to take ibuprofen due to stomach issues. A lumbar spine X-ray in April showed moderate degenerative changes, a grade 1 retrolisthesis at L3-L4, multilevel bone spurring, moderate multilevel facet arthropathy, and moderate multilevel neuroforaminal stenosis. His last MRI of the back was approximately 4-5 years ago. A hip x-ray also showed significant arthritis. His past medical history is significant for a prior CVA without residual symptoms, coronary artery disease status post stent, 30% right-sided carotid stenosis, history of left-sided carotid endarterectomy, hypertension, hyperlipidemia, prediabetes with an A1c of 6.2, cervical degenerative joint disease, and a history of melanoma. He takes Plavix and is prescribed oxycodone by his PCP for occasional use during severe spasms. Pain Description - Onset and Timing: Chronic pain for approximately 10 years, with a recent exacerbation after playing golf and working on his truck. - Location: Low back (mainly left side), with localization to the right hip and neck. - Radiation: Radiates to his right hip. - Quality: Described as constant, spasming, shooting, and aching. - Severity: Rated as 5/10 in the morning and increases to 7/10 in the late afternoon. - Exacerbating Factors: Bending for a long time, weather changes, general movement, getting out of a bed or car, and sitting for a while without a supportive pillow. - Relieving Factors: Extending the back (leaning backwards) feels good. - Interference with Function: Affects his ability to walk, bend, climb stairs, and lift. Pain Management - Analgesia: Current pain is rated 5/10 in the morning and 7/10 in the late afternoon. He has tried prednisone and Flexeril. He uses oxycodone, prescribed by his PCP, only when he has severe spasms and cannot move. - Activities of Daily Living: Pain affects his ability to walk, bend, climb stairs, and lift. He has stopped golfing due to the pain. - Adverse Effects: He cannot take ibuprofen due to stomach issues and his use of Plavix. - Aberrant Drug Related Behaviors: He reports using his prescribed oxycodone sparingly, only for severe spasms. - Affect: Not explicitly discussed. [facility] Medical History (Updated 05/20/25 @ 10:13 by CORTNEY Qiu) Stenosis of right carotid artery Stenosis of left carotid artery Umbilical hernia Spondylosis of cervical region without myelopathy or radiculopathy Occlusion and stenosis of unspecified carotid artery Prediabetes Wood Bucker's nodule Osteoarthritis of right hip Hypertension Hyperlipidemia CVA (cerebral vascular accident) Chest pain Cervical spinal stenosis Arthritis Osteoarthritis of lower back Surgical History (Updated 05/20/25 @ 09:51 by Radha Knutson) H/O endarterectomy Social History Patient Tobacco Use Status: Former Tobacco user Review of Systems Narrative - Musculoskeletal: Reports chronic low back pain, right hip pain, and neck pain. Describes pain as constant, spasming, shooting, and aching, which is exacerbated by movement and weather changes. He has difficulty bending and getting up from a seated position. - Neurological: Denies tingling, numbness, weakness, or heaviness in the lower extremities. History of a prior stroke with no residual deficits. - Gastrointestinal: Reports stomach issues with ibuprofen use. Const All systems reviewed & are unremarkable except as noted in HPI and below Physical Exam General: Appears afebrile. Alert and oriented. Mood and affect appropriate. Follows and participates in conversation appropriately. Respiratory effort is unlabored. No cough. Able to transition from sit to stand unassisted. Ambulates with antalgic gait, with limping. General: Yes no CVA tenderness Back/Spine/Pelvis Other: Limited lumbar ROM due to pain. Limited and painful lumbar spine flexion and bending, requiring use of right hand for support to return to upright position. Lumbar extension is not painful and provides some relief. Demonstrates 5/5 left and 4/5 right strength of quadriceps bilaterally as well as flexion/dorsiflexion of bilateral feet against resistance. 2+ pedal pulses bilaterally. Straight leg rise with dorsiflexion positive on the right. Diminished patellar and achilles reflexes bilaterally. Facet loading test positive bilaterally. Limited William?s and Stinchfield tests are reproduces right groin and hip pain, not back or buttock pain. Moderate right groin pain with I/E hip rotations. Valsalva maneuver negative. Back: no CVA tenderness Cervical Spine: cervical ROM normal and No Cervical spine tenderness Thoracic/Lumbar Spine: thoracic and lumbar spine normal to inspection, No Thoracic/lumbar spine scar(s), Lasegue's sign positive on the right and diffuse, pain with thoraco-lumbar ROM, paraspinal muscle tenderness on the right greater than left, thoraco-lumbar ROM limited, No thoracic spinal tenderness and lumbar spinal tenderness at L4 and at L5 Sacroiliac joints: bilaterally nontender Extrem General: Yes capillary refill normal, Yes no clubbing, cyanosis or edema and Yes no calf tenderness Results Reviewed Results Reviewed: Assessment & Plan Assessment & Plan (1) Lumbar degenerative disc disease: Code(s): M51.369 - Other intervertebral disc degeneration, lumbar region without mention of lumbar back pain or lower extremity pain Category: Medical (2) Lumbar radiculopathy: Code(s): M54.16 - Radiculopathy, lumbar region Category: Medical (3) Lumbosacral spondylosis: Code(s): M47.817 - Spondylosis without myelopathy or radiculopathy, lumbosacral region Category: Medical (4) Spondylolisthesis, lumbar region: Code(s): M43.16 - Spondylolisthesis, lumbar region Category: Medical (5) Chronic right hip pain: Code(s): M25.551 - Pain in right hip; G89.29 - Other chronic pain Category: Medical Plan The patient will be monitored for the next 1-2 weeks to assess the therapeutic benefit of the right hip cortisone injection he received three days ago at [facility]. 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 If the hip pain improves but the low back pain continues to be bothersome, the plan is to proceed with diagnostic medial branch blocks to confirm the facet joints as the pain generator. If these blocks are successful, he would be a candidate for a radiofrequency ablation or nerve stimulation procedure for longer-lasting pain relief. An MRI of the lumbar spine will be ordered if he experiences continued back pain with bending, flexion, twisting and spasms or if groin pain persists despite improvement in his hip pain, in order to evaluate for spinal stenosis or a pinched nerve, particularly at the L2-L3 or L3-L4 levels. The patient has opted to wait before proceeding with the MRI. He is encouraged to continue his home exercise program and to avoid aggravating activities, such as prolonged bending or heavy lifting. Referral for physical therapy for his back and hip remains an option. He will call the office in 1-2 weeks to provide an update on his symptoms to determine the next steps. All questions and concerns have been answered and patient agreed with the treatment plan. Follow up as needed. Patient was informed and verbally consented to the use of an ambient scribe for clinic note documentation during this visit. Coding Level of Care Code New Pt Level 4 (15671) Diagnoses Lumbar degenerative disc disease M51.369 Lumbar radiculopathy M54.16 Lumbosacral spondylosis M47.817 Spondylolisthesis, lumbar region M43.16 Chronic right hip pain M25.551; G89.29
[2025-05-20 09:37] VITALS: BP 159/72; PULSE 63; O2SAT 98; BMI 28.1
--- OUTSIDE RECORDS SUMMARY | 2025-05-20 10:00 | XMS_ITS | Encounter Summary ---
Author Organization [facility] Address [address] [place] [address] Care Team Providers Care Order Processing Clerk Name Role Phone Rodney Renteria MD Primary Care Provider [phone] Reason for Referral * Consultation (Routine) - Closed Specialty Diagnoses / Procedures Referred By Contac t Referred To Contact Pain Medicine Diagnoses Other osteoarthritis of spine, lumbar region Rodney Renteria MD [address] [place] [address] Phone: tel: fax: Nirmal Negrete MD [address] [place] [id number] Phone: tel: Referral ID Status Reason Start Date Expiration Date V isits Requested Visits Authorized [id number] Closed Specialty Services Required 03/16/2025 03/16/2026 1 1 Encounter Details Date Type Department Care Team (Late st Contact Info) Description 03/16/2025 Results Follow-Up Adult Medicine [address] [phone] Rodney Renteria MD [address] [place] [address] Social History Tobacco Use Types Packs/Day Years [...] Description 07/20/2025 9:10 AM EST Office Visit [facility] [address] [place] [phone] Jenni Horne NP [address] [place] [address] [address] [place] [id number] 07/27/2025 11:30 AM EST Office Visit Adult Medicine [address] [phone] Rodney Renteria MD [address] [place] [address] Scheduled Referrals Name Type Priority Associated Diagnoses Orde r Schedule Ambulatory referral to Pain Medicine Outpatient Referral Routine Other osteoarthritis of spine, lumbar region 1 Occurrences starting 03/16/2025 until 03/16/2026 documented as of this encounter Visit Diagnoses Diagnosis Other osteoarthritis of spine, lumbar region- Primary documented in this encounter Care Teams Order Processing Clerk Relationship Specialty Start Date End Date Rodney Renteria MD [address] [place] [address] PCP - General Internal Medicine 01/15/22 documented as of this encounter
--- OUTSIDE RECORDS SUMMARY | 2025-05-20 10:01 | XMS_ITS | Clinical Summary ---
Author Organization [address] [facility] Address [address] [place] [address] Phone Care Team Providers Care Collar Fuser Name Role Phone Rodney Renteria MD Primary Care Provider Allergies Active Allergy Reactions Criticality Noted Date Comments Bee Venom Protein (Honey Bee) 2006 Cat Dander 12/23/2015 Dog Dander 12/23/2015 Lisinopril 10/16/2009 Cough Medications acetaminophen (TYLENOL 8 HOUR) 650 mg 8 hr tablet Take 1 tablet (650 mg total) by mouth 2 (two) times a day. 01/20/20 24 Active cholecalcifero l (VITAMIN D-3) 25 mcg (1,000 unit) tablet Take 1 tablet (1,000 Units total) by mouth 1 (one) time each day. 07/28/19 24 Active atorvastatin (LIPITOR) 40 mg tablet Take 1 tablet (40 mg total) by mouth at bedtime. Active EPINEPHrine (EPIPEN) 0.3 mg/0.3 mL injection Inject 0.3 mL (0.3 mg total) into the thigh if needed for anaphylaxis. Call 911 after use. 1 each 1 07/20/19 25 Active meclizine (ANTIVERT) 12.5 mg tablet Take 1 tablet (12.5 mg total) by mouth 3 (three) times a day if needed for dizziness. 30 tablet 1 07/20/19 25 Active clopidogreL (PLAVIX) 75 mg tablet Take 1 tablet (75 mg total) by mouth 1 (one) time each day. 90 tablet 1 02/24/20 25 Active cyclobenzaprin e (FLEXERIL) 5 mg tabletIndicati ons:Acute left-sided low back pain without sciatica Take 1 tablet (5 mg total) by mouth at bedtime as needed for muscle spasms. 30 tablet 2 02/24/20 Active Additional Information Patient not taking.Reported on 05/17/2025 oxyCODONE (ROXICODONE) 5 mg immediate release tablet Take 1 tablet (5 mg total) by mouth 2 (two) times a day if needed for severe pain. Max Daily Amount: 10 mg 14 tablet 02/24/20 25 Active hydroCHLOROthi azide (HYDRODIURIL) 25 mg tablet TAKE 1 TABLET BY MOUTH EVERY DAY 90 tablet 1 03/01/20 25 Active valsartan (DIOVAN) 80 mg tablet TAKE 1 TABLET BY MOUTH EVERY DAY 90 tablet 1 03/01/20 25 Active hydrocortisone (ANUSOL-HC) 2.5 % rectal cream INSERT INTO THE RECTUM 2 TIMES A DAY. 30 g 1 04/06/20 Active nitroglycerin (NITROSTAT) 0.[address] 1 TABLET UNDER TONGUE EVERY 5 MINS, UP TO 3 DOSES NEEDED FOR CHEST PAIN 75 tablet 1 04/15/20 25 Active metoprolol succinate (TOPROL-XL) 50 mg 24 hr tablet TAKE 1 TABLET BY MOUTH EVERY DAY DO NOT CRUSH OR CHEW 90 tablet 05/17/20 Active lidocaine (LIDODERM) 5 % patch APPLY 1 PATCH TOPICALLY DAILY LEAVE ON MOST PAINFUL AREA FOR UP TO 12 HRS 04/15/20 Active metoprolol succinate (TOPROL-XL) 50 mg 24 hr tablet TAKE 1 TABLET BY MOUTH 1 TIME EACH DAY. DO NOT CRUSH OR CHEW. 90 tablet 02/09/20 25 025 Discontinued Hospital, Clinic, or Other Facility Administered Medication Ordered Dose Route Frequency Start Date End Date Status lidocaine (XYLOCAINE) 1 % injection 4 mLIndications:Right hip pain 4 mL Once PRN Procedure 05/17/2025 05/17/2025 Ended triamcinolone acetonide (KENALOG-40) 40 mg/mL injection 40 mgIndications:Right hip pain 40 mg Once PRN Procedure 05/17/2025 05/17/2025 Ended Active Problems Problem Noted Date Diagnosed Date Gastroesophageal reflux disease without esophagi tis 06/17/2023 Osteoarthritis of right hip 06/17/2023 Stenosis of right carotid artery 06/17/2023 Spondylosis of cervical frankie on without myelopathy or radiculopathy 03/26/2023 Overview (04/15/2024): Last Assessment & Plan: Mr. Mohan has had great relief with physical therapy. He is doing home exercises and credits that and the traction with his improvement. At this point, he just has a little bit of numbness in the fifth digit of each hand. He would like a prescription for a home traction unit. We will reach out to [facility] and get that taken care of. He will follow-up with us in the future on an as-needed basis. 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 2007 Cervical spinal stenosis 04/11/2017 Coronary artery disease invo lving bois forte coronary artery of bois forte heart without angina pectoris 05/01/2011 Overview (04/15/2024): Bare-metal stent to right coronary artery, 01/29/2011 Arthritis 02/26/2010 Hyperlipidemia 02/26/2010 Primary hypertension 02/01/2009 Umbilical hernia 09/16/2008 Occlusion and stenosis of unspecified carotid ar palmer 02/21/2006 Resolved Problems Problem Noted Date Diagnosed Date Resolved Date Old cerebrovascular accident (CVA) without late effect 04/15/2024 04/15/2024 Encounters Date Type Department Care Team Description 05/17/2025 10:50 AM EST Ancillary Procedure Orthopedic Surgery [facility] [address] [phone] Arrived 05/17/2025 10:00 AM EST Office Visit Orthopedic Surgery [facility] [address] [phone] Beba Keith MD Right hip pain (Primary Dx) 04/20/2025 Telephone Adult Medicine [address] [phone] Onel Wright [place] 04/15/2025 Telephone Adult [address] [phone] Rodney Renteria MD 03/16/2025 12:24 PM EDT - 03/16/2025 11:59 PM EDT Hospital Encounter [address] [phone] Acute left-sided low back pain with left-sided sciatica Discharge Disposition: Home or Self Care 03/16/2025 Results Follow-Up [address] [phone] Rodney Renteria MD 03/15/2025 Telephone Adult [address] [phone] Rodney Renteria MD 02/23/2025 10:00 AM EDT Office Visit [address] [phone] Rodney Renteria MD Acute left-sided low back pain without sciatica (Primary Dx); Primary hypertension; Prediabetes; Mixed hyperlipidemia; Coronary artery disease status post coronary stent insertion; Old cerebrovascular accident (CVA) without late effect; Screening for prostate cancer 02/22/2025 Telephone Adult [address] [phone] Rodney Renteria MD 02/21/2025 Telephone Neurosurgery [place] [address] [place] [address] Odalys Crawford MD from Last 3 Months Immunizations Immunization Administration Dates Next Due H1N1 Inj Preservative [...] on file Sexual Orientation Not on file Last Filed Vital Signs Vital Sign Reading Time Taken Comments Blood Pressure 138/68 02/23/2025 10:09 AM EDT Pulse 68 02/23/2025 10:09 AM EDT Temperature 35.9 C (96.6 F) 02/23/2025 10:09 AM EDT Respiratory Rate 16 07/20/2024 10:59 AM EST Oxygen Saturation 97% 05/19/2024 1:39 PM EST Inhaled Oxygen Concentration - - Weight 84.8 kg (187 lb) 05/17/2025 9:59 AM EST Height 174 cm (5' 8.5 ) 05/17/2025 9:59 AM EST Body Mass Index 28.02 05/17/2025 9:59 AM EST Plan of Treatment Upcoming Encounters Date Type Department Care Team (Late st Contact Info) Description 07/20/2025 9:10 AM EST Office Visit [facility] [address] [facility] [address] [place] [phone] Jenni Horne NP [address] [place] [address] [address] [place] [phone] 07/27/2025 11:30 AM EST Office Visit Adult Medicine [address] [phone] Rodney Renteria MD [address] [place], [place] Health Maintenance Due Date Last Done Comments Zoster Vaccines (1 of 2) 1999 Falls Risk Assessment 05/11/2022 Medicare Annual Wellness Visit 05/11/2022 Social Influencers of Health Screening 05/11/2022 Depression Screening 06/02/2024 06/17/2023 COVID-19 Vaccine ( season) 2025 02/14/2024, 02/22/2023, 03/18/2022, Additional history exists Hypertension/CHF/CAD Annual BMP Blood Test 07/08/2025 07/08/2024, 06/24/2023 Colorectal Cancer Screening: Colonoscopy 04/06/2026 04/06/2021 Cholesterol Screening (Lipid Panel) 07/08/2029 07/08/2024, 06/24/2023 DTaP,Tdap,and Td Vaccines (3 - Td or Tdap) 06/17/2033 06/17/2023, 12/01/2012 Hepatitis C Screening Completed 12/01/2012 Pneumococcal Vaccine: 50+ Years Completed 03/31/2019, 05/12/2018, 03/10/2008, Additional history exists Abdominal Aortic Aneurysm (AAA) Screen Discontinued 01/02/2021 RSV Immunization Adult Patients Completed 02/14/2024 Influenza Vaccine Completed 03/07/2025, , 02/22/2023, Additional history exists HIB Vaccines Aged Out No longer eligi [...] 05/17/2025 10:48 AM EST Right hip pain XR HIP 2-3 VIEWS RIGHT Routine 05/17/2025 10:45 AM EST Right hip pain MA ARTHROCENTESIS/ASPIRA TION/INJECTION MAJOR JOINT/BURSA W U/S GUIDANCE Routine 05/17/2025 10:00 AM EST Right hip pain XR LUMBAR SPINE 4+ VIEWS Routine 03/16/2025 12:36 PM EDT Acute left-sided low back pain with left-sided sciatica BASIC METABOLIC PANEL Routine 07/08/2024 10:35 AM EST Poorly-controlled hypertension Mixed hyperlipidemia Prediabetes Coronary artery disease involving bois forte coronary artery of bois forte heart without angina pectoris Old cerebrovascular accident (CVA) without late effect Stenosis of left carotid artery Primary osteoarthritis of right hip LIPID PANEL WITH REFLEX TO DIRECT LDL Routine 07/08/2024 10:35 AM EST Poorly-controlled hypertension Mixed hyperlipidemia Prediabetes Coronary artery disease involving bois forte coronary artery of bois forte heart without angina pectoris Old cerebrovascular accident (CVA) without late effect Stenosis of left carotid artery Primary osteoarthritis of right hip DEPRESSION SCREENING Routine 06/17/2023 COLONOSCOPY Routine 04/06/2021 ABDOMINAL AORTIC ANEURYSM SCRREN Routine 01/02/2021 HEPATITIS C SCREENING Routine 12/01/2012 from Last 3 Months or Most Recently Relevant to Health Maintenance Results * US Arthrocentesis Asp Inj Joint [...] stored and retrievable. us Beba Keith MD IM US PROCEDURES Final Result * XR Hip [...] Signed Date: 05/17/2025 16:33 ET Workstation ID: [id number] Transcribed By: Self Edit Transcribed Date: 05/17/2025 [...] Signed Date: 05/17/2025 16:33 ET Workstation ID: [id number] Transcribed By: Self Edit Transcribed Date: 05/17/2025 16:31 ET us Beba Keith MD IMG XR PROCEDURES Final Result * MA ARTHROCENTESIS/ASPIRATION/INJECTION MAJOR JOINT/BURSA W U/S GUIDANCE (05/17/2025 [...] MD IN CLINIC/BEDSIDE ORDERABLES F inal Result * XR Lumbar Spine 4+ Views (03/16/2025 12:36 PM EDT) Anatomical Region Laterality Modality Spine, L-spine Radiographic Savana ging 03/16/2025 12:5 5 PM EDT Impressions 03/16/2025 1:28 PM EDT Moderate degenerative changes of the lumbar spine. -------- FINAL REPORT -------- Dictated By: Reza Salamanca Dictated Date: 03/16/2025 12:55 ET Assigned Physician: Reza Salamanca Reviewed and Electronically Signed By: Reza Salamanca Signed Date: 03/16/2025 13:28 ET Workstation ID: [id number] Transcribed By: Self Edit Transcribed Date: 03/16/2025 12:55 ET Narrative 03/16/2025 1:28 PM EDT HISTORY: Low backache TECHNIQUE: 4 views of the lumbar spine COMPARISON: Lumbar spine radiograph from 11/18/2023 FINDINGS: Vertebral body height is maintained. Decreased disc height at L2-L3, L3-L4 and L5-S1 with endplate sclerosis. There is grade 1 retrolisthesis of L3 on L4. Small anterior osteophytes are present at multiple levels. Moderate facet arthropathy at multiple levels. Moderate neuroforaminal stenosis at multiple levels. Large amount stool throughout the colon. Dense atherosclerosis of the abdominal aorta. Procedure Note Reza Salamanca MD - 03/16/2025 HISTORY: Low backache TECHNIQUE: 4 views of the lumbar spine COMPARISON: Lumbar spine radiograph from 11/18/2023 FINDINGS: Vertebral body height is maintained. Decreased disc height at L2-L3, L3-L4and L5-S1 with endplate sclerosis. There is grade 1 retrolisthesis of L3on L4. Small anterior osteophytes are present at multiple levels. Moderatefacet arthropathy at multiple levels. Moderate neuroforaminal stenosis atmultiple levels. Large amount stool throughout the colon. Denseatherosclerosis of the abdominal aorta. IMPRESSION: Moderate degenerative changes of the lumbar spine. -------- FINAL REPORT -------- Dictated By: Reza Salamanca Dictated Date: 03/16/2025 12:55 ET Assigned Physician: Reza Salamanca Reviewed and Electronically Signed By: Reza Salamanca Signed Date: 03/16/2025 13:28 ET Workstation ID: [id number] Transcribed By: Self Edit Transcribed Date: 03/16/2025 12:55 ET us Rodney Renteria MD IMG XR PROCEDURES Final Res ult * Lipid panel with reflex to direct LDL (07/08/2024 10:35 AM EST) Cholesterol 154 0 - 200 mg/dL LAB CHEMISTRY METHOD 07/08/2024 12:[address] [facility] Triglycerides 130 0 - 150 mg/dL LAB CHEMISTRY METHOD 07/08/2024 12:[address] [facility] HDL 50 >=40 mg/dL LAB CHEMISTRY METHOD 07/08/2024 12:[address] [facility] LDL Calculated 78 0 - 100 mg/dL LAB CHEMISTRY METHOD 07/08/2024 12:[address] [facility] VLDL Cholesterol Leobardo 26 mg/dL LAB CHEMISTRY METHOD 07/08/2024 12:[address] [facility] Non HDL Chol. (LDL+VLDL) 104 <145 mg/dL LAB CHEMISTRY METHOD 07/08/2024 12:[address] [facility] Chol/HDL Ratio 3.1 0.0 - 4.4 LAB CHEMISTRY METHOD 07/08/2024 12:[address] [facility] Blood Venous blood specimen / Unknown Venipuncture / Unknown 07/08/2024 10:35 AM EST 07/08/2024 10:35 AM EST Rodney Renteria MD LAB BLOOD ORDERABLES Final Result [facility] [address] [place] [address], * (ABNORMAL) Basic metabolic panel (07/08/2024 10:35 AM EST) Sodium 138 133 - 145 mmol/L LAB CHEMISTRY METHOD 07/08/2024 12:[address] [facility] Potassium 4.2 3.5 - 5.5 mmol/L LAB CHEMISTRY METHOD 07/08/2024 12:[address] [facility] Chloride 101 96 - 110 mmol/L LAB CHEMISTRY METHOD 07/08/2024 12:[address] [facility] CO2 31 21 - 32 mmol/L LAB CHEMISTRY METHOD 07/08/2024 12:[address] [facility] Anion Gap 6 3 - 11 LAB CHEMISTRY METHOD 07/08/2024 12:[address] [facility] Glucose 118(H) 70 - 100 mg/dL LAB CHEMISTRY METHOD 07/08/2024 12:[address] [facility] BUN 15 5 - 25 mg/dL LAB CHEMISTRY METHOD 07/08/2024 12:[address] [facility] Creatinine 0.93 0.70 - 1.30 mg/dL LAB CHEMISTRY METHOD 07/08/2024 12:[address] [facility] eGFR 86 >=60 mL/min/1. 73m2 LAB CHEMISTRY METHOD 07/08/2024 12:[address] [facility] Comment:Calculation based on the Chronic Kidney Disease Epidemiology Collaboration (CKD-EPI) equation refit without adjustment for race. BUN/Creatinine Ratio 16.1 LAB CHEMISTRY METHOD 07/08/2024 12:[address] [facility] Calcium 9.7 8.5 - 10.5 mg/dL LAB CHEMISTRY METHOD 07/08/2024 12:[address] [facility] Blood Venous blood specimen / Unknown Venipuncture / Unknown 07/08/2024 10:35 AM EST 07/08/2024 10:35 AM EST Rodney Renteria MD LAB BLOOD ORDERABLES Final Result [facility] [address] [place] [address], * Depression Screening (06/17/2023) [facility] Depression Screening abstracted Historical Provider HEALTH MAINTENANCE Final Result * Colonoscopy (04/06/2021) [facility] Colonoscopy abstracted, no interpretation Anatomical Region Laterality Modality Other Historical Tien MARCIAL HEALTH MAINTENANCE Final Result * Abdominal Aortic Aneurysm Screen (01/02/2021) [facility] Abdominal Aortic Aneurysm (AAA) Screening abstracted, no interpretation Anatomical Region Laterality Modality Other Historical Tien MARCIAL HEALTH MAINTENANCE Final Result * Hepatitis C Screening (12/01/2012) [facility] Hepatitis C Screening abstracted Historical Provider HEALTH MAINTENANCE Final Result from Last 3 Months or Most Recently Relevant to Health Maintenance Insurance MEDICARE MEDICAID - [place] Care Teams Collar Fuser Relationship Specialty Start Date End Date Rodney Renteria MD [address] [place] [address] PCP - General Internal Medicine 01/15/22
== END 2025-05-20 09:58 | disposition home or self-care (01) ==
LOC: HO.PMC 09:22
PROVIDERS: PCP Internal Medicine; Visit Provider Nurse Practitioner Family
DX: M51.369 Other intervertebral disc degeneration, lumbar region without mention of lumbar back pain or lower extremity pain (principal); M54.16 Radiculopathy, lumbar region; M47.817 Spondylosis without myelopathy or radiculopathy, lumbosacral region; M43.16 Spondylolisthesis, lumbar region; M25.551 Pain in right hip; G89.29 Other chronic pain
CPT/HCPCS: 99204

== ENCOUNTER → 2025-05-20 09:22 | Outpatient (BNVA) | payer MEDICARE, MEDICAID, SELFPAY | PROVIDERS: PCP Internal Medicine; Visit Provider Nurse Practitioner Family | DX: M54.16 Radiculopathy, lumbar region (principal); M51.369 Other intervertebral disc degeneration, lumbar region without mention of lumbar back pain or lower extremity pain; M47.817 Spondylosis without myelopathy or radiculopathy, lumbosacral region; M43.16 Spondylolisthesis, lumbar region; M25.551 Pain in right hip; G89.29 Other chronic pain; I10 Essential (primary) hypertension; Z79.01 Long term (current) use of anticoagulants; Z87.891 Personal history of nicotine dependence | CPT/HCPCS: 99202 ==